=== PATIENT | female | born 1960 | race Caucasian/White ===

== ENCOUNTER 2017-08-06 15:07 | Inpatient (IN) | payer MEDICARE ==
[~2017-08-06 15:07] MED LIST: ISOVUE-370 76%-LOCM 1 ML ONE
[2017-08-06 15:58] LABS: #Lymphocytes 1.4 thou/uL (1.20-3.40); #Monocytes 1.3 thou/uL (0.11-0.59); #Neutrophils 6.9 thou/uL (1.40-6.50); %Basophils 0.1 % (0.0-1.0); %Eosinophils 0.1 % (0.0-10.0); %Lymphocytes 14.9 % (21.0-51.0); %Monocytes 13.1 % (0.0-10.0); Hematocrit 28.2 % (36.0-47.0); Red Blood Cell (RBC) Count 2.68 mill/uL (4.20-5.40); White Blood Cell (WBC) Count 9.6 thou/uL (4.8-10.8)
[2017-08-06 16:19] LABS: Troponin I Less than 0.010 ng/mL (< 0.028)
[2017-08-06 16:20] LABS: ALT (SGPT) 15 U/L (8-55); AST (SGOT) 26 U/L (5-34); Alkaline Phosphatase 180 U/L (40-150); Anion Gap 21 mmol/L (10-20); BUN (Urea Nitrogen) 22 mg/dL (9.8-20.1); Bilirubin, Total 0.7 mg/dL (0.2-1.2); CK (CPK) 163 U/L (29-168); Calc. Creatinine Clearance 0 mL/min (70-130); Calcium 7.3 mg/dL (7.8-10.44); Carbon Dioxide 22 mmol/L (22-29); Chloride 96 mmol/L (98-107); Estimated GFR-MDRD 40; Globulin 2.3 g/dL (2.4-3.5); Lipase Less than 4 U/L (8-78); Protein, Total 4.9 g/dL (6.0-8.3)
[2017-08-06] MEDS ORDERED: Norepinephrine 8 MG/0.9% NS 250 ML ONE (16:27)
[2017-08-06 16:46] LABS: PTT 32.9 SEC (22.9-36.1); Prothrombin Time 15.4 SEC (12.0-14.7)
[2017-08-06] MEDS ORDERED: Dexamethasone 4 mg/ml Vial ONE (16:58)
[2017-08-06 16:59] LABS: Lactic Acid - Sepsis 0.7 mmol/L (0.5-2.2)
--- NOTE | 2017-08-06 17:03 | RAD ---
PORTABLE AP CHEST X-RAY: 08/06/17 HISTORY: Syncope. COMPARISON: 07/29/17. FINDINGS: The right internal jugular vein central venous catheter has been removed. The cardiac silhouette is magnified by projection. Again noted is the mild nonspecific increased interstitial densities. A scl erotic density again overlies the mid thoracic spine which may be related to prior vertebroplasty ch anges. There has been no other interval change when compared to the prior exam. IMPRESSION: 1. Stable mild increase in interstitial densities predominantly in the right upper lobe. These findings may be related to chronic lung changes; although, pneumonitis is not entirely excluded. 2. Interval removal of the right internal jugular vein central venous catheter. POS: [facility]
[2017-08-06] MEDS ORDERED: Fentanyl 100 MCG/2 ML VIAL ONE ×2 (17:35→19:56)
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
[2017-08-06] MEDS ORDERED: Hydrocortisone Sod Succ/PF 100 mg/2 ml Vial IVP SCH (20:00)
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
[2017-08-06] MEDS ORDERED: Norepinephrine 8 MG/250 ML BAG IVPB PRN (20:35)
[2017-08-06] MEDS ORDERED: Ondansetron HCl/PF 4 MG/2 ML Vial IVP PRN ×2 (20:36→20:52)
[2017-08-06] MEDS ORDERED: Ondansetron ODT 4 MG TAB SL PRN (20:36)
[2017-08-06] MEDS ORDERED: Sodium Chloride 0.9% 1,000 ML IV SCH (20:36)
[2017-08-06] MEDS ORDERED: Ondansetron ODT 4 MG TAB PO PRN (20:52)
[2017-08-06] MEDS ORDERED: Dextrose 50% Abboject 50 ML SYRINGE SLOW IVP PRN (20:52)
[2017-08-06] MEDS ORDERED: Cyclobenzaprine 10 MG TAB PO PRN (20:52)
[2017-08-06] MEDS ORDERED: Dextrose 5% in Water 1,000 ML IV PRN (20:52)
[2017-08-06] MEDS ORDERED: Promethazine HCl 25 MG/ML VIAL IM PRN (20:52)
[2017-08-06] MEDS ORDERED: HYDROcodone/Acetaminophen 7.5/325 mg Tablet PO PRN (20:52)
[2017-08-06] MEDS ORDERED: Dexamethasone 4 mg/ml Vial SLOW IVP SCH (21:00)
[2017-08-06] MEDS ORDERED: Cefepime 2 GM in Sodium Chloride 0.9% 100 ML IVPB SCH (21:00)
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
[2017-08-06] MEDS: Sodium Chloride 0.9% 1,000 ML IV SCH (21:41)
[2017-08-06] MEDS: Famotidine/PF 20 mg/2ml Vial SLOW IVP SCH (22:01)
[2017-08-06] MEDS: Ibuprofen 800 MG TAB PO SCH (22:05)
[2017-08-06] MEDS: HYDROcodone/Acetaminophen 7.5/325 mg Tablet PO PRN (22:05)
[2017-08-07] MEDS: Hydrocortisone Sod Succ/PF 100 mg/2 ml Vial IVP SCH ×4 (00:14→17:57)
[2017-08-07] MEDS: HYDROcodone/Acetaminophen 7.5/325 mg Tablet PO PRN ×4 (04:51→19:21)
[2017-08-07] MEDS: Ibuprofen 800 MG TAB PO SCH ×3 (05:02→21:23)
[2017-08-07 05:05] LABS: #Lymphocytes 0.5 thou/uL (1.20-3.40); #Monocytes 0.2 thou/uL (0.11-0.59); #Neutrophils 6.7 thou/uL (1.40-6.50); %Eosinophils 0.1 % (0.0-10.0); %Lymphocytes 6.5 % (21.0-51.0); %Monocytes 2.4 % (0.0-10.0); Hematocrit 25.7 % (36.0-47.0); Mean Platelet Volume 7.1 fL (7.4-10.4); Red Blood Cell (RBC) Count 2.44 mill/uL (4.20-5.40); White Blood Cell (WBC) Count 7.4 thou/uL (4.8-10.8)
[2017-08-07 05:16] LABS: Anion Gap 15 mmol/L (10-20); BUN (Urea Nitrogen) 20 mg/dL (9.8-20.1); Calc. Creatinine Clearance 73 mL/min (70-130); Calcium 7.9 mg/dL (7.8-10.44); Carbon Dioxide 27 mmol/L (22-29); Chloride 100 mmol/L (98-107); Estimated GFR-MDRD 52
[2017-08-07] MEDS: Enoxaparin Sodium 40 MG/0.4 ML SYRINGE SC SCH (09:34)
[2017-08-07] MEDS: Famotidine/PF 20 mg/2ml Vial SLOW IVP SCH ×2 (09:34→21:22)
[2017-08-07] MEDS: Sodium Chloride 0.9% 1,000 ML IV SCH (09:34)
[2017-08-07] MEDS: clonazePAM 1 MG TAB PO SCH ×2 (14:04→21:23)
[2017-08-07] MEDS: Gabapentin 300 MG CAP PO SCH ×2 (14:04→21:22)
[2017-08-07 14:24] VITALS: BMI 31.0
--- NOTE | 2017-08-07 14:39 | PRG ---
DATE OF SERVICE: 08/07/2017 SUBJECTIVE: The patient was admitted yesterday with what appears to be adrenal insufficiency. She had no events overnight and after receiving her hydrocortisone bolus of 100 mg, the patient's blood pressure systolic was about 100 all night, the patient had no events. She feels that she has return ed to baseline and this morning was wearing her TLSO brace and was ready to start working with physi calixto therapy. PHYSICAL EXAMINATION: VITAL SIGNS: Temperature 98.2, heart rate 80, blood pressure 123/68, respirations 16, oxygen satura tion is 92% on room air. HEENT: Unremarkable. LUNGS: Clear to auscultation bilaterally with good inspiratory and expiratory effort. ABDOMEN: Soft, flat, nontender. EXTREMITIES: Neurovascularly intact x4. LABORATORY DATA: White blood cell count 7.4, hemoglobin 8.0, hematocrit 25.7, platelets 288. Sodiu m 138, potassium 3.5, chloride 100, CO2 27, BUN 20, creatinine 1.09, glucose 120. There are no radi ographs this morning. ASSESSMENT AND PLAN: Status post adrenal insufficiency, resolving with hydrocortisone. We will con tinue the patient on hydrocortisone, return her to her previous medications and get her working with physical and occupational therapy and if she remains stable today, we will move her to the surgical floor later this afternoon in hopes of transferring her back to rehab tomorrow. The evaluation exa mination, laboratory findings were done with Dr. Salgado this morning.
[2017-08-07] MEDS: Ferrous Sulfate 325 MG TAB PO SCH (17:57)
[2017-08-07] MEDS ORDERED: traZODone HCl 50 MG TAB PO SCH (21:00)
[2017-08-07] MEDS: Ascorbic Acid 500 mg Chewable Tablet PO SCH (21:22)
[2017-08-08] MEDS: Sodium Chloride 0.9% 1,000 ML IV SCH ×2 (00:06→10:56)
[2017-08-08] MEDS: Hydrocortisone Sod Succ/PF 100 mg/2 ml Vial IVP SCH ×4 (00:16→17:53)
[2017-08-08] MEDS: HYDROcodone/Acetaminophen 7.5/325 mg Tablet PO PRN ×5 (01:09→19:43)
[2017-08-08] MEDS: Ibuprofen 800 MG TAB PO SCH ×2 (05:45→14:59)
[2017-08-08 06:22] LABS: #Lymphocytes 0.9 thou/uL (1.20-3.40); #Monocytes 0.7 thou/uL (0.11-0.59); #Neutrophils 4.7 thou/uL (1.40-6.50); %Basophils 0.3 % (0.0-1.0); %Eosinophils 0.1 % (0.0-10.0); %Lymphocytes 14.7 % (21.0-51.0); %Monocytes 10.6 % (0.0-10.0); Hematocrit 27.5 % (36.0-47.0); Mean Platelet Volume 6.9 fL (7.4-10.4); Red Blood Cell (RBC) Count 2.62 mill/uL (4.20-5.40); White Blood Cell (WBC) Count 6.3 thou/uL (4.8-10.8)
[2017-08-08 06:39] LABS: Magnesium 1.7 mg/dL (1.6-2.6); Phosphorus 4.3 mg/dL (2.3-4.7)
[2017-08-08 06:41] LABS: Anion Gap 15 mmol/L (10-20); BUN (Urea Nitrogen) 19 mg/dL (9.8-20.1); Calc. Creatinine Clearance 63 mL/min (70-130); Calcium 8.4 mg/dL (7.8-10.44); Carbon Dioxide 26 mmol/L (22-29); Chloride 99 mmol/L (98-107); Estimated GFR-MDRD 44
[2017-08-08] MEDS ORDERED: Sodium Chloride 0.9% 500 ML IV SCH (07:45)
[2017-08-08] MEDS ORDERED: Magnesium Sulfate 4 GM in Sodium Chloride 0.9% 250 ML 250 ML IVPB SCH (08:00)
[2017-08-08] MEDS: Ferrous Sulfate 325 MG TAB PO SCH ×2 (08:37→17:52)
[2017-08-08] MEDS: clonazePAM 1 MG TAB PO SCH ×2 (08:38→15:00)
[2017-08-08] MEDS: Enoxaparin Sodium 40 MG/0.4 ML SYRINGE SC SCH (08:38)
[2017-08-08] MEDS: Ascorbic Acid 500 mg Chewable Tablet PO SCH (08:38)
[2017-08-08] MEDS: Famotidine/PF 20 mg/2ml Vial SLOW IVP SCH (08:39)
[2017-08-08] MEDS: Gabapentin 300 MG CAP PO SCH ×2 (08:39→15:00)
--- NOTE | 2017-08-08 09:00 | PRG ---
DATE OF SERVICE: 08/08/2017 SUBJECTIVE: Ms. Ross has no complaints. She notes that she feels more puffy secondary to all the IV fluids. PHYSICAL EXAMINATION: VITAL SIGNS: She is afebrile, blood pressure is 131/78, pulse 92. She voided 500 this morning. ABDOMEN: Soft, nontender. CHEST: Bilateral crackles and they are mild. No wheezing. LABORATORY DATA: Sodium 137, potassium 3.1, and creatinine 1.27. ASSESSMENT: Adrenal insufficiency, status post hypotensive episode. PLAN: Resolve. Continue steroids. Back to rehabilitation soon.
--- NOTE | 2017-08-08 12:00 | RAD ---
AP VIEW CHEST: HISTORY: A 56-year-old with respiratory distress. FINDINGS: AP view chest was obtained on 08/08/17. Comparison is made to previous exam from 08/06/17. AP view chest demonstrates the lungs to be well aerated. No evidence of active intrathoracic diseas e seen. No evidence of effusions, pneumonia, or pneumothorax seen. IMPRESSION: Unremarkable AP view chest. POS: [facility]
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
[2017-08-08 17:03] VITALS: BP 130/75; TEMP 98
== END 2017-08-08 20:17 | DRG 643 ==
LOC: ERS 15:07 → CCU 20:28 → SURG B 08-07 17:02
PROVIDERS: ADMIT Surgery; ATTEND Surgery
PROC: 02HV33Z Insertion of Infusion Device into Superior Vena Cava, Percutaneous Approach (ICD-10-PCS; principal; 2017-08-06)
DX: E27.40 Unspecified adrenocortical insufficiency (principal); R57.1 Hypovolemic shock; J44.9 Chronic obstructive pulmonary disease, unspecified; I10 Essential (primary) hypertension; F31.9 Bipolar disorder, unspecified; M54.9 Dorsalgia, unspecified; G89.29 Other chronic pain; F17.210 Nicotine dependence, cigarettes, uncomplicated; S32.011D Stable burst fracture of first lumbar vertebra, subsequent encounter for fracture with routine healing; V49.9XXD Car occupant (driver) (passenger) injured in unspecified traffic accident, subsequent encounter; M79.7 Fibromyalgia; Z86.73 Personal history of transient ischemic attack (TIA), and cerebral infarction without residual deficits; E78.5 Hyperlipidemia, unspecified
CPT/HCPCS: 36415; 71010; 71275; 80048; 82274; 82533; 82553; 83605; 83630; 83690; 83735; 83880; 84100; 84484; 85025; 85610; 85730; 87015; 87040; 87045; 87046; 87086; 87449; 87899; 93005; 94760; 94799; G8978-GP-CK; G8979-GP-CJ; J0692; J1100; J1650; J1720; J1956; J3010; J3370; J3475; J7050; S0028

== ENCOUNTER 2017-08-23 15:22 | Inpatient (IN) | payer MEDICARE ==
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
[2017-08-23 17:51] LABS: PTT 31.9 SEC (22.9-36.1); Prothrombin Time 12.7 SEC (12.0-14.7)
[2017-08-23 18:03] LABS: Lactic Acid - Sepsis 1.1 mmol/L (0.5-2.2)
[2017-08-23 18:11] LABS: Hematocrit 27.9 % (36.0-47.0); Mean Platelet Volume 7.8 fL (7.4-10.4); Red Blood Cell (RBC) Count 2.61 mill/uL (4.20-5.40); White Blood Cell (WBC) Count 5.4 thou/uL (4.8-10.8)
[2017-08-23 18:13] LABS: Troponin I 0.038 ng/mL (< 0.028)
[2017-08-23 18:17] LABS: Anisocytosis SLIGHT = 6-15 cells (100X) (0-5/hpf); Band 23 % (5-11); Macrocytosis SLIGHT = 6-15 cells (100X) (0-5/hpf); Neutrophil 44 % (42-75); Ovalocytes SLIGHT = 2-5 cells (100X) (0-1/hpf); Polychromasia MODERATE = 3-4 cells (100X) (0-2/hpf); Reactive Lymphocytes 2 % (0-10); Target Cells SLIGHT = 2-5 cells (100X) (0-1/hpf)
[2017-08-23 18:29] LABS: ALT (SGPT) 21 U/L (8-55); AST (SGOT) 24 U/L (5-34); Alkaline Phosphatase 98 U/L (40-150); Anion Gap 18 mmol/L (10-20); BUN (Urea Nitrogen) 15 mg/dL (9.8-20.1); Bilirubin, Total 0.5 mg/dL (0.2-1.2); CK (CPK) 64 U/L (29-168); Calc. Creatinine Clearance 0 mL/min (70-130); Calcium 7.3 mg/dL (7.8-10.44); Carbon Dioxide 29 mmol/L (22-29); Chloride 96 mmol/L (98-107); Estimated GFR-MDRD 71; Globulin 3.3 g/dL (2.4-3.5)
[2017-08-23] MEDS ORDERED: Furosemide 20 MG/2 ML VIAL ONE (19:38)
[2017-08-23] MEDS ORDERED: Potassium Chloride 20 MEQ TAB ONE (19:39)
[2017-08-23] MEDS ORDERED: Dextrose 50% Abboject 50 ML SYRINGE SLOW IVP PRN (20:08)
[2017-08-23] MEDS ORDERED: HYDROcodone/Acetaminophen 10/325 mg Tablet PO PRN (20:08)
[2017-08-23] MEDS ORDERED: Ondansetron HCl/PF 4 MG/2 ML Vial IVP PRN (20:08)
[2017-08-23] MEDS ORDERED: Promethazine HCl 25 MG/ML VIAL IM PRN (20:08)
[2017-08-23] MEDS ORDERED: Dextrose 5% in Water 1,000 ML IV PRN (20:08)
[2017-08-23] MEDS ORDERED: Furosemide 20 MG/2 ML VIAL SLOW IVP SCH (21:00)
[2017-08-23 21:18] LABS: Troponin I 0.052 ng/mL (< 0.028)
[2017-08-23] MEDS ORDERED: Acetaminophen/Codeine 30-300mg Tablet ONE (21:45)
[2017-08-23] MEDS: Famotidine/PF 20 mg/2ml Vial SLOW IVP SCH (23:27)
[2017-08-23] MEDS: HYDROcodone/Acetaminophen 10/325 mg Tablet PO PRN (23:28)
[2017-08-23] MEDS: Enoxaparin Sodium 30 MG/0.3 ML SYRINGE SC SCH (23:28)
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
[2017-08-23 23:49] LABS: Bilirubin Negative (Negative); Blood, Urine Negative (Negative); Glucose, Urine (Dipstick) Negative (Negative); Ketone, Urine Negative (Negative); Nitrite Negative (Negative); Protein, Urine (Dipstick) Negative (Neg-Trace); Urobilinogen 0.2 mg/dL (0.2-1.0)
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
[2017-08-24 02:51] LABS: Band 15 % (5-11); Hematocrit 27.1 % (36.0-47.0); Mean Platelet Volume 6.8 fL (7.4-10.4); Neutrophil 33 % (42-75); Red Blood Cell (RBC) Count 2.51 mill/uL (4.20-5.40); White Blood Cell (WBC) Count 6.7 thou/uL (4.8-10.8)
[2017-08-24 02:53] LABS: Troponin I 0.044 ng/mL (< 0.028)
[2017-08-24 03:02] LABS: Anion Gap 14 mmol/L (10-20); BUN (Urea Nitrogen) 13 mg/dL (9.8-20.1); Calc. Creatinine Clearance 112 mL/min (70-130); Calcium 7.3 mg/dL (7.8-10.44); Carbon Dioxide 35 mmol/L (22-29); Chloride 96 mmol/L (98-107); Estimated GFR-MDRD 74
[2017-08-24] MEDS ORDERED: Potassium Chloride 20 MEQ TAB PO SCH (03:45)
[2017-08-24] MEDS: HYDROcodone/Acetaminophen 10/325 mg Tablet PO PRN ×2 (04:29→09:34)
[2017-08-24 08:05] LABS: Magnesium 1.4 mg/dL (1.6-2.6)
[2017-08-24 08:25] LABS: Troponin I 0.044 ng/mL (< 0.028)
--- NOTE | 2017-08-24 08:44 | RAD ---
RADIOGRAPH CHEST 1 VIEW: Date: 08/24/17 Time: 0458 HOURS HISTORY: 56-year-old female with congestive heart failure. COMPARISON: 08/23/17 at 1653 hours. FINDINGS: No cardiomegaly. Interstitial markings are prominent at the right lower lung zone, apparently greate r than on the prior study. It is uncertain whether this is real or technical. No consolidation. No f rank pulmonary alveolar edema. No mediastinal widening, pneumothorax, or effacement of lateral costo phrenic angles. IMPRESSION: Subtle interval change of increased density at the right medial base. Follow-up recommended. YEIMI [] POS: [facility]
[2017-08-24] MEDS: Famotidine/PF 20 mg/2ml Vial SLOW IVP SCH ×2 (08:58→20:58)
[2017-08-24] MEDS: Enoxaparin Sodium 30 MG/0.3 ML SYRINGE SC SCH ×2 (08:59→20:58)
[2017-08-24] MEDS: AcetaZOLAMIDE 250 MG TAB PO SCH ×2 (09:33→21:54)
[2017-08-24] MEDS: clonazePAM 0.5 MG TAB PO SCH ×2 (12:47→20:58)
[2017-08-24] MEDS: HYDROcodone/Acetaminophen 7.5/325 mg Tablet PO PRN ×2 (13:29→18:10)
--- NOTE | 2017-08-24 14:09 | CT ---
CT ANGIOGRAM OF THE ABDOMINAL AORTA CT ANGIOGRAM OF THE PELVIS: Date: 08/24/17 COMPARISON: 08/06/17. HISTORY: Abdominal pain. Diarrhea. Evaluate for ischemic bowel. TECHNIQUE: CT angiogram of the abdominal aorta and pelvis are performed in the axial plane. Three-dimensional r eformatted images are submitted for interpretation. FINDINGS: Chronic changes in the lung bases. Heart size is within normal limits. No significant pericardial fl uid. Liver, spleen, pancreas, and adrenal glands have appropriate enhancement. Gallbladder is surgically absent. A fold in the gallbladder is noted. No evidence of cholecystitis. There is scarring in the left renal cortex. Bilaterally, no obstructive uropathy. No mesenteric mass, lymphadenopathy, free air, or significant free fluid. Trace amount of fluid in t he right paracolic gutter is noted. No gastrohepatic, retrocrural, or periportal lymphadenopathy. There are nonspecific periaortic and a ortocaval lymph nodes, unchanged from the prior examination. Symmetric attenuation of the psoas musc les. There is evidence of an aortobifemoral bypass. The [place] iliac arteries are occluded. Stents are re demonstrated and unchanged. There is no evidence of aneurysm or dissection. There is atherosclerotic disease with mild stenosis of the suprarenal aorta. There is atherosclerotic disease with short seg ment moderate stenosis. The celiac artery origin, superior mesenteric artery origin, bilateral renal artery ostia, and inferior mesenteric artery origin have appropriate enhancement and luminal diamet er. There is no evidence of significant stenosis. Limited evaluation of the alimentary canal due to lack of oral contrast. No evidence of small bowel obstruction. Ileocecal junction is normal. Normal caliber appendix. There are appendicoliths in the mid to distal portion of the appendix without evidence of inflammatory change. There is a moderate a mount of fecal material throughout the colon. There is mucosal thickening and pericolonic fat strand ing starting in the mid transverse colon and involving the mid to distal transverses colon, splenic flexure, descending colon, and entire sigmoid colon. The lung segment distribution favors an infecti ous or possibly inflammatory process. The distribution is less favorable for an ischemic process giv en that the segment of colon involved would be supplied by both the JOVITA and SMA. There is pericoloni c fat stranding. No evidence of bowel wall pneumatosis. No evidence of abscess or extraluminal air. When compared to the previous examination, the distribution of inflammatory change is similar. Clini calixto correlation is essential. Colonoscopy should be performed when the acute bout of inflammatory ch elizabet resolves. The urinary bladder is decompressed due to Fry catheterization. No pelvic mass, lymphadenopathy, f ree air, or free fluid. Indeterminate compression fracture at the L1 level. Previous vertebroplasty change in the mid thorac ic spine is noted. 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 There are two arteries supplying the left and right kidney. IMPRESSION: 1. Persistent inflammatory change involving the transverse colon and left hemicolon as detailed abo ve. Distribution is favorable for an infectious or inflammatory process. Ischemic process is less fa vored given that the degree of involvement would involve both SMA and CATHY branches. 2. Stable atherosclerosis of the aorta. 3. Stable occlusion of the left and right iliac arteries. Bypass changes are noted. POS: [facility]
--- NOTE | 2017-08-24 14:17 | PRG ---
DATE OF SERVICE: 08/24/2017 SUBJECTIVE: Ms. Ross is awake and alert today. She reports good pain control. She denies any dy spnea or syncope. Urinary output has been adequate. She denies any abdominal pain and has reported 2 bowel movements since admission. OBJECTIVE: VITAL SIGNS: Today includes blood pressure 158/80, pulse is 69, respiratory rate 16, temperature is 98.2 degrees Fahrenheit, oxygen saturation is 100% on 2 liters by nasal cannula oxygen. HEENT: Reveals normocephalic and atraumatic. The pupils are equal, round, and reactive to light an d accommodation. Extraocular muscles are intact bilaterally. The patient has no jugular venous dis tention noted. HEART: Reveals regular rate and rhythm with a 2/6 systolic murmur auscultated in the left sternal b order. CHEST: Lungs are clear to auscultation bilaterally. CARDIOVASCULAR: Rhythm is regular and unlabored. ABDOMEN: Soft and moderately distended and nontender to palpation. Liver and spleen are nonpalpabl e below costal margins. EXTREMITIES: Extremities reveals 2+ radial and pedal pulses bilaterally. The patient has no ankle edema present. NEUROLOGIC: Reveals no focal deficits present. LABORATORY DATA: Today includes a CBC with 6700 white blood cells, hemoglobin 8.4, hematocrit is 27 .1, platelet count is 303,000. Metabolic profile: Sodium 142, potassium is 2.8, chloride is 96, bi carbonate 35, BUN 13, creatinine 0.80, glucose is 70, phosphorus is 3.0. Magnesium is 1.4. BNP is elevated at 1457.6. 2D echocardiogram obtained today reveals normal ejection fraction of 55-60%. There is moderate to s evere mitral regurgitation that was reported. This is a drastic change in contrast to the echo obta inemesha in 2015 where a mild mitral regurgitation was noted. Also noted in today's echocardiogram is i mpaired relaxation with diastolic dysfunction. IMPRESSION: 1. Acute congestive heart failure exacerbation with diastolic dysfunction. 2. Acute hypokalemia. 3. Acute hypomagnesemia. 4. Acute contraction metabolic alkalosis. PLAN: 1. We will continue with gentle diuresis. 2. We will ask Cardiology to reevaluate the patient for this worsening diastolic cardiac dysfunctio n. 3. We will correct abnormal electrolytes. The above findings and plan has been discussed with the patient who indicates understanding of infor mation given.
[2017-08-24] MEDS ORDERED: Potassium Chloride 40 MEQ in Sodium Chloride 0.9% 500 ML IVPB SCH ×2 (14:45→15:00)
[2017-08-24] MEDS: Gabapentin 300 MG CAP PO SCH ×2 (15:06→20:57)
[2017-08-24] MEDS ORDERED: ISOVUE-370 76%-LOCM 1 ML ONE (15:59)
[2017-08-24] MEDS: traMADol HCl 50 MG TAB PO SCH ×2 (17:15→20:58)
[2017-08-24] MEDS: Aspirin 81 mg Enteric Coated Tablet PO SCH (18:10)
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
[2017-08-24] MEDS: Atorvastatin Calcium 40 MG TAB PO SCH (20:58)
[2017-08-24] MEDS ORDERED: Spironolactone 100 MG TAB PO SCH (21:00)
[2017-08-25 05:09] LABS: Anion Gap 11 mmol/L (10-20); BUN (Urea Nitrogen) 12 mg/dL (9.8-20.1); Calc. Creatinine Clearance 100 mL/min (70-130); Calcium 7.4 mg/dL (7.8-10.44); Carbon Dioxide 31 mmol/L (22-29); Chloride 101 mmol/L (98-107); Estimated GFR-MDRD 66; Magnesium 2.6 mg/dL (1.6-2.6); Phosphorus 4.1 mg/dL (2.3-4.7)
[2017-08-25] MEDS ORDERED: Potassium Chloride 20 MEQ TAB PO SCH (07:45)
[2017-08-25] MEDS: traMADol HCl 50 MG TAB PO SCH ×4 (07:56→22:23)
[2017-08-25] MEDS: Gabapentin 300 MG CAP PO SCH ×3 (07:56→22:27)
[2017-08-25] MEDS: AcetaZOLAMIDE 250 MG TAB PO SCH (07:56)
[2017-08-25] MEDS: Furosemide 40 MG/4 ML VIAL SLOW IVP SCH ×3 (07:57→13:17)
[2017-08-25] MEDS: Famotidine/PF 20 mg/2ml Vial SLOW IVP SCH ×2 (07:57→22:24)
[2017-08-25] MEDS: Aspirin 81 mg Enteric Coated Tablet PO SCH (07:57)
[2017-08-25] MEDS: clonazePAM 0.5 MG TAB PO SCH ×3 (07:57→22:23)
[2017-08-25] MEDS: Enoxaparin Sodium 30 MG/0.3 ML SYRINGE SC SCH ×2 (07:58→22:25)
[2017-08-25] MEDS: HYDROcodone/Acetaminophen 7.5/325 mg Tablet PO PRN ×3 (08:04→22:24)
[2017-08-25] MEDS ORDERED: FLU VACC QS2017-18 36 mo. & older 0.5 ML SYRINGE IM ONE (09:00)
--- NOTE | 2017-08-25 16:29 | PRG ---
DATE OF SERVICE: 08/25/2017 SUBJECTIVE: Ms. Ross is awake and alert. She is admitted with acute CHF exacerbation. Currently , she reports no dyspnea or syncope. She has had good urinary output with forced diuresis since yes terday. She has remained hemodynamically stable and afebrile through this hospitalization. OBJECTIVE: CURRENT VITAL SIGNS: Includes blood pressure 112/58, pulse is 98, respiratory rate is 20, maximum t emperature in the last 24 hours is 98.7 degrees Fahrenheit, oxygen saturation is currently 96% on 2 liters by nasal cannula oxygen. HEENT: Examination reveals normocephalic and atraumatic. Pupils are equal, round, and reactive to light and accommodation. The patient has no jugular venous distention noted. HEART: Reveals regular rate and rhythm, no murmurs or gallops auscultated. LUNGS: Clear to auscultation bilaterally. Breathing is strict and unlabored. ABDOMEN: Soft, nontender and nondistended. Liver and spleen are nonpalpable below costal margins. NEUROLOGIC: Examination reveals no focal deficits present. LABORATORY DATA: Pertinent laboratory findings today includes metabolic profile: Sodium 139, potas sium is 3.6, chloride is 101, bicarbonate is 31, BUN 12, creatinine 0.89, glucose is 62, magnesium i s 2.6, and phosphorus is 4.1. IMPRESSION: 1. Resolving acute congestive heart failure exacerbation with diastolic function. 2. Acute hypokalemia, resolving. PLAN: 1. Continue with forced diuresis. 2. Correct abnormal electrolytes. 3. The patient has remained hemodynamically stable and will be transferred to a general surgical sd onh where we will continue with serial physical examination as well as physical and occupational the rapy.
[2017-08-25] MEDS: Atorvastatin Calcium 40 MG TAB PO SCH (22:23)
[2017-08-26] MEDS: Famotidine/PF 20 mg/2ml Vial SLOW IVP SCH ×3 (02:19→21:08)
[2017-08-26] MEDS: HYDROcodone/Acetaminophen 7.5/325 mg Tablet PO PRN ×5 (02:29→23:45)
[2017-08-26 06:08] LABS: Anion Gap 9 mmol/L (10-20); BUN (Urea Nitrogen) 13 mg/dL (9.8-20.1); Calc. Creatinine Clearance 95 mL/min (70-130); Calcium 7.5 mg/dL (7.8-10.44); Carbon Dioxide 29 mmol/L (22-29); Chloride 100 mmol/L (98-107); Estimated GFR-MDRD 63; Magnesium 1.6 mg/dL (1.6-2.6); Phosphorus 4.8 mg/dL (2.3-4.7)
[2017-08-26] MEDS: Furosemide 40 MG/4 ML VIAL SLOW IVP SCH ×2 (06:26→13:01)
[2017-08-26] MEDS ORDERED: Potassium Chloride 20 MEQ TAB PO SCH (07:30)
[2017-08-26] MEDS ORDERED: Potassium Chloride 40 MEQ, Magnesium Sulfate 4 GM in Sodium Chloride 0.9% 250 ML 250 ML IVPB SCH (08:15)
[2017-08-26] MEDS: Enoxaparin Sodium 30 MG/0.3 ML SYRINGE SC SCH ×2 (08:44→21:08)
[2017-08-26] MEDS: Aspirin 81 mg Enteric Coated Tablet PO SCH (08:44)
[2017-08-26] MEDS: Metolazone 5 MG TAB PO SCH (08:44)
[2017-08-26] MEDS: clonazePAM 0.5 MG TAB PO SCH ×3 (08:44→21:08)
[2017-08-26] MEDS: traMADol HCl 50 MG TAB PO SCH ×4 (08:45→21:07)
[2017-08-26] MEDS: Gabapentin 300 MG CAP PO SCH ×3 (08:45→21:07)
[2017-08-26] MEDS: Folic Acid 1 MG TAB PO SCH (08:45)
--- NOTE | 2017-08-26 12:08 | PRG-2 ---
DATE OF SERVICE: 08/26/2017 SUBJECTIVE: Ms. Ross is awake and alert. Reports she is doing much better today, feeling much be tter, having good pain control. She has had good urinary output on diuresis. Reports her swelling has gone down in her legs. Reports moving around better. No other concerns or complaints at this t [place]. PHYSICAL EXAMINATION: VITAL SIGNS: Temperature is 98.5, pulse 79, respirations 16, O2 sats 98% on room air, blood pressur e is 108/69. GENERAL: She is alert and oriented x3, no acute distress. HEENT: Atraumatic, normocephalic. CARDIOVASCULAR: Heart regular rate and rhythm. No murmurs or gallops. CHEST: Lungs clear to auscultation bilaterally. Breathing is unlabored. ABDOMEN: Soft, nontender, nondistended. She has the brace in place. NEUROLOGIC: No focal neuro deficit at this time. LABORATORY DATA: Chemistry: Sodium is 135, potassium 3.4, chloride 100, CO2 is 29, BUN 13, creatin ine 0.92, calcium 7.5, phosphorus is 4.8 and magnesium is 1.6. New images to be reviewed at this time. ASSESSMENT: 1. Resolving acute congestive heart failure exacerbation with diastolic function. 2. Acute hypokalemia which down trended a little bit today. PLAN: Dr. Mandujano has been consulted with Cardiology to help follow. She has been placed on Lasix diuresis. We will continue that for today. We will replace potassium, 40 IV. We will recheck lab s in the morning. Due to the other day, her hemoglobin being a little low and MCV high, it was foun d in the past that she has had a folic acid deficiency, have restarted her on folic acid and thiamin e and we will continue to monitor labs tomorrow. We will continue patient to work with PT, OT and fermín rowland with therapies. The patient was seen and plan of care was discussed with Dr. Salgado.
[2017-08-26] MEDS: Loperamide HCl 2 MG CAP PO PRN (14:51)
[2017-08-26] MEDS: Atorvastatin Calcium 40 MG TAB PO SCH (21:08)
[2017-08-27 05:39] LABS: Anion Gap 13 mmol/L (10-20); BUN (Urea Nitrogen) 17 mg/dL (9.8-20.1); Calc. Creatinine Clearance 73 mL/min (70-130); Calcium 8.3 mg/dL (7.8-10.44); Carbon Dioxide 28 mmol/L (22-29); Chloride 96 mmol/L (98-107); Estimated GFR-MDRD 47; Magnesium 2.1 mg/dL (1.6-2.6); Phosphorus 5.4 mg/dL (2.3-4.7)
[2017-08-27] MEDS: Furosemide 40 MG/4 ML VIAL SLOW IVP SCH ×2 (05:42→15:07)
[2017-08-27] MEDS: HYDROcodone/Acetaminophen 7.5/325 mg Tablet PO PRN ×2 (05:43→15:13)
[2017-08-27] MEDS: Famotidine/PF 20 mg/2ml Vial SLOW IVP SCH ×2 (08:30→20:06)
[2017-08-27] MEDS: clonazePAM 0.5 MG TAB PO SCH ×3 (08:30→20:08)
[2017-08-27] MEDS: Aspirin 81 mg Enteric Coated Tablet PO SCH (08:31)
[2017-08-27] MEDS: Gabapentin 300 MG CAP PO SCH ×3 (08:31→20:08)
[2017-08-27] MEDS: traMADol HCl 50 MG TAB PO SCH ×5 (08:31→23:57)
[2017-08-27] MEDS: Metolazone 5 MG TAB PO SCH (08:32)
[2017-08-27] MEDS: Enoxaparin Sodium 30 MG/0.3 ML SYRINGE SC SCH ×2 (08:32→20:08)
[2017-08-27] MEDS: Folic Acid 1 MG TAB PO SCH (08:32)
[2017-08-27] MEDS: Loperamide HCl 2 MG CAP PO PRN ×2 (11:29→23:32)
[2017-08-27 12:04] VITALS: BMI 33.9
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
[2017-08-27] MEDS ORDERED: Furosemide 40 MG TAB PO SCH (19:45)
[2017-08-27] MEDS: Atorvastatin Calcium 40 MG TAB PO SCH (20:08)
[2017-08-27] MEDS: Ibuprofen 800 MG TAB PO PRN (23:15)
[2017-08-28] MEDS: Ondansetron ODT 4 MG TAB PO PRN ×2 (03:40→20:10)
[2017-08-28] MEDS: Loperamide HCl 2 MG CAP PO PRN ×3 (03:40→21:12)
[2017-08-28 05:36] LABS: #Lymphocytes 2.7 thou/uL (1.20-3.40); #Monocytes 1.1 thou/uL (0.11-0.59); #Neutrophils 3.7 thou/uL (1.40-6.50); %Basophils 0.4 % (0.0-1.0); %Eosinophils 0.1 % (0.0-10.0); %Lymphocytes 35.7 % (21.0-51.0); %Monocytes 14.7 % (0.0-10.0); Hematocrit 25.8 % (36.0-47.0); Mean Platelet Volume 7.2 fL (7.4-10.4); Red Blood Cell (RBC) Count 2.43 mill/uL (4.20-5.40); White Blood Cell (WBC) Count 7.4 thou/uL (4.8-10.8)
[2017-08-28] MEDS ORDERED: Furosemide 40 MG/4 ML VIAL SLOW IVP SCH (06:00)
[2017-08-28] MEDS ORDERED: Furosemide 40 MG TAB PO SCH (06:00)
[2017-08-28 06:01] LABS: Anion Gap 17 mmol/L (10-20); BUN (Urea Nitrogen) 24 mg/dL (9.8-20.1); Calc. Creatinine Clearance 46 mL/min (70-130); Calcium 8.5 mg/dL (7.8-10.44); Carbon Dioxide 26 mmol/L (22-29); Chloride 93 mmol/L (98-107); Estimated GFR-MDRD 27; Magnesium 1.9 mg/dL (1.6-2.6); Phosphorus 5.6 mg/dL (2.3-4.7)
[2017-08-28] MEDS: Ibuprofen 800 MG TAB PO PRN ×2 (07:10→15:06)
[2017-08-28] MEDS: HYDROcodone/Acetaminophen 7.5/325 mg Tablet PO PRN ×2 (08:10→18:09)
[2017-08-28] MEDS: Aspirin 81 mg Enteric Coated Tablet PO SCH (08:10)
[2017-08-28] MEDS: Enoxaparin Sodium 30 MG/0.3 ML SYRINGE SC SCH ×2 (08:11→21:08)
[2017-08-28] MEDS: Folic Acid 1 MG TAB PO SCH (08:11)
[2017-08-28] MEDS: clonazePAM 0.5 MG TAB PO SCH ×3 (08:30→21:06)
[2017-08-28] MEDS: Famotidine/PF 20 mg/2ml Vial SLOW IVP SCH ×2 (08:30→21:07)
[2017-08-28] MEDS ORDERED: traMADol HCl 50 MG TAB PO PRN (08:38)
[2017-08-28] MEDS: traMADol HCl 50 MG TAB PO SCH ×4 (09:27→21:09)
[2017-08-28] MEDS ORDERED: MAGNESIUM SULFATE IVPB SCH (11:15)
[2017-08-28] MEDS ORDERED: SODIUM CHLORIDE IVPB SCH (11:15)
[2017-08-28] MEDS ORDERED: ADMIXTURE FEE IVPB SCH (11:15)
[2017-08-28] MEDS ORDERED: HYDROcodone/Acetaminophen 10/325 mg Tablet PO PRN (11:43)
[2017-08-28] MEDS ORDERED: Magnesium 2 GM/NS 0.9% 100 ML 2 GM in Premix Bag 1 BAG IVPB SCH (11:45)
[2017-08-28] MEDS: Gabapentin 300 MG CAP PO SCH ×3 (11:56→21:07)
[2017-08-28] MEDS: Potassium Chloride 20 MEQ/100 ML PREMIX BAG IVPB SCH ×2 (13:50→13:58)
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
[2017-08-28] MEDS: Atorvastatin Calcium 40 MG TAB PO SCH (21:06)
[2017-08-29] MEDS: Ibuprofen 800 MG TAB PO PRN (04:17)
[2017-08-29] MEDS: Loperamide HCl 2 MG CAP PO PRN (05:04)
[2017-08-29] MEDS: Ondansetron ODT 4 MG TAB PO PRN ×2 (06:15→14:47)
[2017-08-29 06:25] LABS: #Basophils 0.1 thou/uL (0.0-0.2); #Monocytes 1.2 thou/uL (0.11-0.59); #Neutrophils 5.6 thou/uL (1.40-6.50); %Basophils 0.8 % (0.0-1.0); %Eosinophils 0.1 % (0.0-10.0); %Lymphocytes 22.5 % (21.0-51.0); %Monocytes 13.7 % (0.0-10.0); Mean Platelet Volume 7.6 fL (7.4-10.4); Red Blood Cell (RBC) Count 2.56 mill/uL (4.20-5.40); White Blood Cell (WBC) Count 8.9 thou/uL (4.8-10.8)
[2017-08-29] MEDS: traMADol HCl 50 MG TAB PO SCH ×4 (09:12→22:17)
[2017-08-29] MEDS: clonazePAM 0.5 MG TAB PO SCH ×3 (09:13→22:16)
[2017-08-29] MEDS: Gabapentin 300 MG CAP PO SCH ×3 (09:18→22:17)
[2017-08-29] MEDS: Enoxaparin Sodium 30 MG/0.3 ML SYRINGE SC SCH ×2 (09:18→22:20)
[2017-08-29] MEDS: Folic Acid 1 MG TAB PO SCH (09:18)
[2017-08-29] MEDS: Aspirin 81 mg Enteric Coated Tablet PO SCH (09:18)
[2017-08-29] MEDS: Famotidine/PF 20 mg/2ml Vial SLOW IVP SCH ×2 (09:19→22:18)
[2017-08-29 09:26] LABS: Anion Gap 17 mmol/L (10-20); BUN (Urea Nitrogen) 27 mg/dL (9.8-20.1); Calc. Creatinine Clearance 41 mL/min (70-130); Calcium 8.8 mg/dL (7.8-10.44); Carbon Dioxide 27 mmol/L (22-29); Chloride 94 mmol/L (98-107); Estimated GFR-MDRD 24; Magnesium 2.3 mg/dL (1.6-2.6); Phosphorus 5.8 mg/dL (2.3-4.7)
[2017-08-29] MEDS: Diphenoxylate HCl/Atropine Tablet PO PRN (14:47)
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
[2017-08-29] MEDS: Atorvastatin Calcium 40 MG TAB PO SCH (22:17)
[2017-08-30 07:48] LABS: Chloride 100 mmol/L (98-107); Magnesium 2.3 mg/dL (1.6-2.6)
[2017-08-30 07:49] LABS: Calcium 8.8 mg/dL (7.8-10.44)
[2017-08-30 07:51] LABS: Anion Gap 14 mmol/L (10-20); Carbon Dioxide 28 mmol/L (22-29)
[2017-08-30 07:53] LABS: Calc. Creatinine Clearance 47 mL/min (70-130); Estimated GFR-MDRD 28
[2017-08-30 07:54] LABS: BUN (Urea Nitrogen) 23 mg/dL (9.8-20.1)
[2017-08-30] MEDS: Aspirin 81 mg Enteric Coated Tablet PO SCH (09:08)
[2017-08-30] MEDS: Gabapentin 300 MG CAP PO SCH ×3 (09:08→20:53)
[2017-08-30] MEDS: Folic Acid 1 MG TAB PO SCH (09:08)
[2017-08-30] MEDS: clonazePAM 0.5 MG TAB PO SCH ×3 (09:08→20:53)
[2017-08-30] MEDS: traMADol HCl 50 MG TAB PO SCH ×4 (09:09→20:53)
[2017-08-30] MEDS: Enoxaparin Sodium 30 MG/0.3 ML SYRINGE SC SCH ×2 (09:09→20:58)
[2017-08-30] MEDS ORDERED: Sodium Chloride 0.9% 500 ML IV SCH (11:15)
[2017-08-30] MEDS: Sodium Chloride 0.9% 1,000 ML IV SCH ×2 (11:47→17:58)
[2017-08-30] MEDS: Ibuprofen 800 MG TAB PO PRN (11:47)
[2017-08-30] MEDS: Atorvastatin Calcium 40 MG TAB PO SCH (20:53)
[2017-08-31] MEDS: Sodium Chloride 0.9% 1,000 ML IV SCH (06:04)
[2017-08-31 06:52] LABS: Anion Gap 10 mmol/L (10-20); BUN (Urea Nitrogen) 16 mg/dL (9.8-20.1); Calc. Creatinine Clearance 68 mL/min (70-130); Calcium 8.4 mg/dL (7.8-10.44); Carbon Dioxide 28 mmol/L (22-29); Chloride 102 mmol/L (98-107); Estimated GFR-MDRD 43; Magnesium 1.6 mg/dL (1.6-2.6); Phosphorus 3.7 mg/dL (2.3-4.7)
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
[2017-08-31] MEDS ORDERED: Magnesium Sulfate 3 GM, Potassium Chloride 40 MEQ in Sodium Chloride 0.9% 250 ML 250 ML IVPB SCH (09:00)
[2017-08-31] MEDS: Gabapentin 300 MG CAP PO SCH ×2 (09:37→15:50)
[2017-08-31] MEDS: Aspirin 81 mg Enteric Coated Tablet PO SCH (09:41)
[2017-08-31] MEDS: Folic Acid 1 MG TAB PO SCH (09:41)
[2017-08-31] MEDS: clonazePAM 0.5 MG TAB PO SCH ×2 (09:41→15:51)
[2017-08-31] MEDS: traMADol HCl 50 MG TAB PO SCH ×2 (09:42→12:31)
[2017-08-31] MEDS: Enoxaparin Sodium 30 MG/0.3 ML SYRINGE SC SCH ×2 (09:42→11:42)
[2017-08-31] MEDS: Diphenoxylate HCl/Atropine Tablet PO PRN (09:45)
[2017-08-31] MEDS: HYDROcodone/Acetaminophen 7.5/325 mg Tablet PO PRN ×2 (09:55→14:36)
[2017-08-31] MEDS ORDERED: Furosemide 40 MG TAB PO SCH (10:45)
[2017-08-31 12:43] VITALS: BP 96/64; TEMP 98.1
[2017-09-01] MEDS ORDERED: Furosemide 40 MG TAB PO SCH (07:30)
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
== END 2017-08-31 16:30 | disposition home health service (06) | DRG 292 ==
LOC: ERS 15:22 → IMCU/EMU 19:15 → SJJU 08-25 10:54
PROVIDERS: ADMIT Specialist; ATTEND Specialist
DX: I11.0 Hypertensive heart disease with heart failure (principal); E87.3 Alkalosis; I95.9 Hypotension, unspecified; I73.9 Peripheral vascular disease, unspecified; E83.42 Hypomagnesemia; E87.6 Hypokalemia; I50.33 Acute on chronic diastolic (congestive) heart failure; J44.9 Chronic obstructive pulmonary disease, unspecified; E78.5 Hyperlipidemia, unspecified; D64.9 Anemia, unspecified; F31.9 Bipolar disorder, unspecified; R33.9 Retention of urine, unspecified; Z87.891 Personal history of nicotine dependence; I34.0 Nonrheumatic mitral (valve) insufficiency
CPT/HCPCS: 36415; 71010; 74174; 80048; 80053; 81003; 82553; 83605; 83735; 83880; 84100; 84484; 85025; 85610; 85730; 87086; 87324; 87449; 93005; 93306; 93970; 96374; 96375; 96376; G8978-GP-CJ; G8979-GP-CI; G8987-GO-CJ; G8988-GO-CH; J1650; J1940; J2270; J2550; J3475; J3480; J7050; P9045; Q0162; S0028

== ENCOUNTER 2017-09-14 21:26 | Inpatient (IN) | payer MEDICARE ==
[2017-09-14] MEDS ORDERED: cefTRIAXone\\ROCEPHIN 500 MG VIAL ONE (22:20)
[2017-09-14 22:29] LABS: #Basophils 0.1 thou/uL (0.0-0.2); #Lymphocytes 2.8 thou/uL (1.20-3.40); #Monocytes 1.8 thou/uL (0.11-0.59); #Neutrophils 11.4 thou/uL (1.40-6.50); %Basophils 0.4 % (0.0-1.0); %Lymphocytes 17.3 % (21.0-51.0); %Monocytes 11.2 % (0.0-10.0); Hematocrit 33.7 % (36.0-47.0); Mean Platelet Volume 6.5 fL (7.4-10.4); Red Blood Cell (RBC) Count 3.25 mill/uL (4.20-5.40)
[2017-09-14 22:39] LABS: Bilirubin Negative (Negative); Blood, Urine Trace (Negative); Glucose, Urine (Dipstick) Negative (Negative); Ketone, Urine Negative (Negative); Nitrite Positive (Negative); Protein, Urine (Dipstick) Negative (Neg-Trace); Urobilinogen 0.2 mg/dL (0.2-1.0)
[2017-09-14 22:40] LABS: Bacteria/HPF 1+ HPF (None Seen); Hyaline Casts/LPF 0-3 HYALINE CAST LPF (0-3 Hyaline); RBC/HPF 0-3 HPF (0-3); Squamous Epithelial None Seen HPF (0-3)
[2017-09-14] MEDS ORDERED: cefTRIAXone\\ROCEPHIN 1 GM, Syringe 0.4 ML in Sterile Water 9.6 ML SLOW IVP SCH (22:45)
[2017-09-14 22:53] LABS: ALT (SGPT) 13 U/L (8-55); AST (SGOT) 14 U/L (5-34); Alkaline Phosphatase 138 U/L (40-150); Anion Gap 21 mmol/L (10-20); BUN (Urea Nitrogen) 67 mg/dL (9.8-20.1); Bilirubin, Total 0.4 mg/dL (0.2-1.2); Calc. Creatinine Clearance 0 mL/min (70-130); Calcium 10.1 mg/dL (7.8-10.44); Carbon Dioxide 19 mmol/L (22-29); Chloride 92 mmol/L (98-107); Estimated GFR-MDRD 17; Globulin 3.7 g/dL (2.4-3.5); Protein, Total 7.6 g/dL (6.0-8.3)
[2017-09-14] MEDS ORDERED: Morphine 10 MG/ML VIAL ONE (23:31)
[2017-09-15] MEDS ORDERED: Sodium Bicarb 50 MEQ/50 ML Abboject 8.4% SYRINGE ONE ×2 (00:11→00:13)
[2017-09-15] MEDS ORDERED: Ondansetron HCl/PF 4 MG/2 ML Vial IVP PRN ×2 (01:30→07:57)
[2017-09-15] MEDS ORDERED: Sodium Chloride 0.9% 1,000 ML IV SCH (01:30)
[2017-09-15] MEDS ORDERED: Ondansetron ODT 4 MG TAB SL PRN (01:30)
[2017-09-15] MEDS ORDERED: Acetaminophen 325 MG TAB PO PRN (01:30)
[2017-09-15 01:41] VITALS: BMI 29.8
[2017-09-15 02:08] LABS: Anion Gap 18 mmol/L (10-20); BUN (Urea Nitrogen) 63 mg/dL (9.8-20.1); Calc. Creatinine Clearance 30 mL/min (70-130); Calcium 9.3 mg/dL (7.8-10.44); Carbon Dioxide 25 mmol/L (22-29); Chloride 94 mmol/L (98-107); Estimated GFR-MDRD 20
[2017-09-15] MEDS ORDERED: Polyethylene Glycol 3350 17 GM Packet PO PRN (04:24)
[2017-09-15] MEDS ORDERED: HYDROcodone/Acetaminophen 10/325 mg Tablet PO SCH (04:30)
[2017-09-15 06:08] LABS: Anion Gap 16 mmol/L (10-20); BUN (Urea Nitrogen) 59 mg/dL (9.8-20.1); Calc. Creatinine Clearance 33 mL/min (70-130); Calcium 9.2 mg/dL (7.8-10.44); Carbon Dioxide 24 mmol/L (22-29); Chloride 98 mmol/L (98-107); Estimated GFR-MDRD 22
[2017-09-15] MEDS ORDERED: Ondansetron ODT 4 MG TAB PO PRN (07:57)
[2017-09-15] MEDS ORDERED: Bisacodyl 5 MG TAB PO PRN (07:57)
[2017-09-15 08:22] LABS: Phosphorus 5.7 mg/dL (2.3-4.7)
[2017-09-15] MEDS: Famotidine 20 MG TAB PO SCH (08:40)
[2017-09-15] MEDS: Sodium Chloride 0.9% 1,000 ML IV SCH ×3 (08:41→23:47)
[2017-09-15] MEDS: Docusate 100 MG CAP PO SCH ×2 (08:41→20:36)
[2017-09-15] MEDS: HYDROcodone/Acetaminophen 10/325 mg Tablet PO PRN ×3 (08:41→20:37)
[2017-09-15] MEDS: Acetaminophen 325 MG TAB PO PRN (12:10)
[2017-09-15 12:29] LABS: Anion Gap 19 mmol/L (10-20); BUN (Urea Nitrogen) 52 mg/dL (9.8-20.1); Calc. Creatinine Clearance 38 mL/min (70-130); Calcium 9.3 mg/dL (7.8-10.44); Carbon Dioxide 22 mmol/L (22-29); Chloride 100 mmol/L (98-107); Estimated GFR-MDRD 26
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
--- NOTE | 2017-09-15 16:40 | PRG ---
DATE OF SERVICE: 09/15/2017 SUBJECTIVE: Patient was seen and examined at bedside and overnight events noted. Patient denies an y shortness of breath or chest pain or palpitation. No history of nausea or vomiting or diarrhea or fever or chills or cramps. OBJECTIVE: GENERAL: This is a well-built female in no apparent distress. VITAL SIGNS: Temperature 99.1, pulse 110, respiratory rate 18, blood pressure 139/81. HEENT: Atraumatic, normocephalic. Oral mucosa is moist. NECK: Supple. CARDIOVASCULAR: S1 and S2 heard, rate and rhythm regular. RESPIRATORY: Clear to auscultation. GASTROINTESTINAL: Abdomen is soft. MUSCULOSKELETAL: No tenderness, no edema. DERMATOLOGIC: No skin rash. NEUROLOGIC: Alert and awake and oriented X3. No focal neurologic deficits. Moving all the extremi ties. PSYCHIATRIC: Mood and affect normal. LABORATORY DATA: Potassium is 5.8, BUN is 52, and creatinine is 2.2. ASSESSMENT AND PLAN: 1. Acute kidney injury on chronic kidney disease. Renal function is getting better. Agree with cu rrent management, continue current management. Hold Lasix and intravenous fluids for now. Continue oral hydration. 2. Hyperkalemia, much better after holding the spironolactone and potassium supplements. 3. Hyponatremia, mild, getting better. 4. Azotemia. 5. Hypoalbuminemia. 6. Hypertension, stable. 7. Monitor blood pressure. Continue current management and will follow. Avoid nephrotoxins.
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
[2017-09-16] MEDS: HYDROcodone/Acetaminophen 10/325 mg Tablet PO PRN ×5 (04:05→22:40)
[2017-09-16 05:18] LABS: #Basophils 0.1 thou/uL (0.0-0.2); #Lymphocytes 2.5 thou/uL (1.20-3.40); #Monocytes 1.2 thou/uL (0.11-0.59); #Neutrophils 5.8 thou/uL (1.40-6.50); %Basophils 0.7 % (0.0-1.0); %Eosinophils 0.1 % (0.0-10.0); %Lymphocytes 25.9 % (21.0-51.0); %Monocytes 12.2 % (0.0-10.0); Hematocrit 30.3 % (36.0-47.0); Mean Platelet Volume 6.5 fL (7.4-10.4); Red Blood Cell (RBC) Count 2.94 mill/uL (4.20-5.40); White Blood Cell (WBC) Count 9.5 thou/uL (4.8-10.8)
[2017-09-16 05:28] LABS: Anion Gap 14 mmol/L (10-20); BUN (Urea Nitrogen) 33 mg/dL (9.8-20.1); Calc. Creatinine Clearance 55 mL/min (70-130); Calcium 9.3 mg/dL (7.8-10.44); Carbon Dioxide 22 mmol/L (22-29); Chloride 104 mmol/L (98-107); Estimated GFR-MDRD 40
[2017-09-16] MEDS: Famotidine 20 MG TAB PO SCH (09:18)
[2017-09-16] MEDS ORDERED: cefTRIAXone\\ROCEPHIN 1 GM in Sodium Chloride 0.9% 100 ML IVPB SCH (10:15)
[2017-09-16] MEDS: Docusate 100 MG CAP PO SCH ×2 (10:56→21:03)
[2017-09-16] MEDS ORDERED: cefTRIAXone\\ROCEPHIN 1 GM, Syringe 0.4 ML in Sterile Water 9.6 ML SLOW IVP SCH (11:00)
[2017-09-16] MEDS: Acetaminophen 325 MG TAB PO PRN (11:31)
--- NOTE | 2017-09-16 12:46 | PDOC.PN ---
- Subjective Encounter Start Date: 09/16/17 Encounter Start Time: 12:44 Patient seen and examined. No new complaints. No overnight events - Objective Resuscitation Status: Resuscitation Status FULL:Full Resuscitation MAR Reviewed: Yes Vital Signs & Weight: Vital Signs (12 hours) Temp Pulse Pulse Pulse Resp BP BP 09/16/17 11:22 98.2 F 107 H 16 09/16/17 10:04 94 112 H 105/55 L 119/57 L 09/16/17 07:50 99.0 F 92 14 09/16/17 04:00 98.3 F 84 16 BP Pulse Ox Pulse Ox 09/16/17 11:22 119/57 L 09/16/17 10:04 96 09/16/17 07:50 102/51 L 09/16/17 04:00 122/58 L 96 Weight Weight 164 lb 12.8 oz I&O: 09/15/17 09/16/17 09/17/17 06:59 06:59 06:59 Intake Total 616 3614 Output Total 550 200 Balance 66 3414 Result Diagrams: 09/16/17 04:17 09/16/17 04:17 Phys Exam - Physical Examination Constitutional: NAD HEENT: PERRLA Neck: no JVD Respiratory: no wheezing Cardiovascular: no significant murmur Gastrointestinal: non-tender Musculoskeletal: edema present Neurological: moves all 4 limbs Psychiatric: A&O x 3 Dx/Plan (1) UTI (urinary tract infection) Status: Acute (2) Renal failure (ARF), acute on chronic Code(s): N17.9 - ACUTE KIDNEY FAILURE, UNSPECIFIED; N18.9 - CHRONIC KIDNEY DISEASE, UNSPECIFIED Status: Acute (3) Hyperkalemia Code(s): E87.5 - HYPERKALEMIA Status: Resolved (4) Compression fracture of first lumbar vertebra Code(s): S32.010A - WEDGE COMPRESSION FRACTURE OF FIRST LUMBAR VERTEBRA, INIT Status: Acute (5) HTN (hypertension) Code(s): I10 - ESSENTIAL (PRIMARY) HYPERTENSION Status: Chronic (6) History of CVA (cerebrovascular accident) Code(s): Z86.73 - PRSNL HX OF TIA (TIA), AND CEREB INFRC W/O RESID DEFICITS Status: Chronic - Plan * start rocephin for uti due to ecoli * f/u renal plan * ef- 55%
[2017-09-16 14:14] LABS: Magnesium 1.7 mg/dL (1.6-2.6)
--- NOTE | 2017-09-16 20:49 | PRG ---
DATE OF SERVICE: 09/16/2017 SUBJECTIVE: Patient was seen and examined at bedside and overnight events noted. Patient denies any shortness of breath or chest pain or palpitation. No history of nausea or vomiting or diarrhea or fever or chills or cramps. OBJECTIVE: GENERAL: This is a well-built white female in no apparent distress. VITAL SIGNS: Temperature 98, pulse 107, respiratory rate 18, blood pressure 119 /67. HEENT: Atraumatic, normocephalic. Oral mucosa is moist. NECK: Supple CARDIOVASCULAR: S1, S2 heard. Rate and rhythm regular. RESPIRATORY: Clear to auscultation GASTROINTESTINAL: Abdomen is soft MUSCULOSKELETAL: No tenderness. No edema. DERMATOLOGIC: No skin rash. NEUROLOGIC: Alert and awake and oriented X3. No focal neurologic deficits. Moving all the extremities. PSYCHIATRIC: Mood and affect normal. LABORATORY DATA: Potassium is 4.5, creatinine is 1.3. ASSESSMENT AND PLAN: 1. Acute kidney injury. Renal function is much better. 2. Hyperkalemia. Limit potassium. 3. HTN - stable. 4. Edema - controlled. 5. Anemia - monitor Hb level. Overall, renal function and potassium are better. Limit potassium in the diet. MTDD
[2017-09-16] MEDS: clonazePAM 1 MG TAB PO SCH (21:03)
[2017-09-17 05:34] LABS: #Lymphocytes 2.1 thou/uL (1.20-3.40); #Neutrophils 6.8 thou/uL (1.40-6.50); %Basophils 0.4 % (0.0-1.0); %Eosinophils 0.1 % (0.0-10.0); %Lymphocytes 21.3 % (21.0-51.0); %Monocytes 9.6 % (0.0-10.0); Hematocrit 29.7 % (36.0-47.0); Mean Platelet Volume 6.3 fL (7.4-10.4); Red Blood Cell (RBC) Count 2.92 mill/uL (4.20-5.40); White Blood Cell (WBC) Count 9.9 thou/uL (4.8-10.8)
[2017-09-17 05:44] LABS: Anion Gap 14 mmol/L (10-20); BUN (Urea Nitrogen) 18 mg/dL (9.8-20.1); Calc. Creatinine Clearance 71 mL/min (70-130); Calcium 9.3 mg/dL (7.8-10.44); Carbon Dioxide 21 mmol/L (22-29); Chloride 103 mmol/L (98-107); Estimated GFR-MDRD 54
[2017-09-17] MEDS: HYDROcodone/Acetaminophen 10/325 mg Tablet PO PRN ×2 (05:44→09:42)
--- NOTE | 2017-09-17 09:15 | PRG ---
DATE OF SERVICE: 09/17/2017 SUBJECTIVE: Patient was seen and examined at bedside and overnight events noted. Patient denies an y shortness of breath or chest pain or palpitation. No history of nausea or vomiting or diarrhea or fever or chills or cramps. OBJECTIVE: GENERAL: This is a well-built white female in no apparent distress. VITAL SIGNS: Temperature 98.1, pulse 82, respiratory rate 18, blood pressure 123/53. HEENT: Atraumatic, normocephalic. Oral mucosa is moist. NECK: Supple. CARDIOVASCULAR: S1 and S2 heard, rate and rhythm regular. RESPIRATORY: Clear to auscultation. GASTROINTESTINAL: Abdomen is soft. MUSCULOSKELETAL: No tenderness, no edema. DERMATOLOGIC: No skin rash. NEUROLOGIC: Alert and awake and oriented X3. No focal neurologic deficits. Moving all the extremi ties. PSYCHIATRIC: Mood and affect normal. LABORATORY DATA: Potassium is 3.9 and creatinine is 1.06. ASSESSMENT AND PLAN: 1. Acute kidney injury, much better and likely stable. 2. Hyperkalemia, much better. 3. Edema, controlled. 4. Cardiorenal syndrome. 5. Hypertension, stable. Okay to discharge home. Follow up in clinic in 1 week.
[2017-09-17] MEDS: Famotidine 20 MG TAB PO SCH (09:42)
[2017-09-17] MEDS: clonazePAM 1 MG TAB PO SCH (09:42)
[2017-09-17] MEDS: Docusate 100 MG CAP PO SCH (09:42)
--- NOTE | 2017-09-17 11:32 | PDOC.PN ---
- Subjective Encounter Start Date: 09/17/17 Encounter Start Time: 11:30 Patient seen and examined. No new complaints. No overnight events - Objective Resuscitation Status: Resuscitation Status FULL:Full Resuscitation MAR Reviewed: Yes Vital Signs & Weight: Vital Signs (12 hours) Temp Pulse Resp BP Pulse Ox 09/17/17 08:00 97.9 F 92 16 105/69 98 09/17/17 04:00 99.1 F 89 18 122/59 L 95 Weight Weight 166 lb 9.6 oz I&O: 09/16/17 09/17/17 09/18/17 06:59 06:59 06:59 Intake Total 3614 1260 Output Total 200 1500 Balance 3414 -240 Result Diagrams: 09/17/17 04:30 09/17/17 04:30 Phys Exam - Physical Examination Constitutional: NAD HEENT: PERRLA Neck: no JVD Respiratory: no wheezing Cardiovascular: no significant murmur Gastrointestinal: non-tender Musculoskeletal: pulses present Neurological: moves all 4 limbs Psychiatric: A&O x 3 Dx/Plan (1) UTI (urinary tract infection) Status: Acute (2) Renal failure (ARF), acute on chronic Code(s): N17.9 - ACUTE KIDNEY FAILURE, UNSPECIFIED; N18.9 - CHRONIC KIDNEY DISEASE, UNSPECIFIED Status: Acute (3) Hyperkalemia Code(s): E87.5 - HYPERKALEMIA Status: Resolved (4) Compression fracture of first lumbar vertebra Code(s): S32.010A - WEDGE COMPRESSION FRACTURE OF FIRST LUMBAR VERTEBRA, INIT Status: Acute (5) HTN (hypertension) Code(s): I10 - ESSENTIAL (PRIMARY) HYPERTENSION Status: Chronic (6) History of CVA (cerebrovascular accident) Code(s): Z86.73 - PRSNL HX OF TIA (TIA), AND CEREB INFRC W/O RESID DEFICITS Status: Chronic - Plan * doing well * kidney function improved * change abx to omnicef * d/c home
[2017-09-17 12:40] VITALS: BP 134/78; TEMP 98.7
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
[2017-09-17] MEDS ORDERED: Cefdinir 300 MG CAP PO SCH (21:00)
--- NOTE | 2017-09-25 16:08 | EKG ---
Test Reason : Blood Pressure : / mmHG Vent. Rate : 096 BPM Atrial Rate : 096 BPM P-R Int : 136 ms QRS Dur : 072 ms QT Int : 324 ms P-R-T Axes : 030 056 065 degrees QTc Int : 409 ms Normal sinus rhythm Slightly peaked T waves Improved c/w prior Normal ECG Confirmed by MITA VILLARREAL DO ([id number]), fashion editor JOCELYN REYES ([id number]) on 09/25/2017 4:08:07 PM Referred By: Confirmed By:MITA VILLARREAL DO
== END 2017-09-17 13:48 | disposition home health service (06) | DRG 683 ==
LOC: ERS 21:26 → 2NO 23:50
PROVIDERS: ADMIT Internal Medicine; ATTEND Internal Medicine
DX: N17.9 Acute kidney failure, unspecified (principal); S32.010A Wedge compression fracture of first lumbar vertebra, initial encounter for closed fracture; I50.32 Chronic diastolic (congestive) heart failure; I13.0 Hypertensive heart and chronic kidney disease with heart failure and stage 1 through stage 4 chronic kidney disease, or unspecified chronic kidney disease; Z99.81 Dependence on supplemental oxygen; E87.1 Hypo-osmolality and hyponatremia; N39.0 Urinary tract infection, site not specified; E87.5 Hyperkalemia; E88.09 Other disorders of plasma-protein metabolism, not elsewhere classified; N18.3 Chronic kidney disease, stage 3 (moderate); E83.39 Other disorders of phosphorus metabolism; I65.29 Occlusion and stenosis of unspecified carotid artery; G89.29 Other chronic pain; M54.9 Dorsalgia, unspecified; Z86.73 Personal history of transient ischemic attack (TIA), and cerebral infarction without residual deficits; F31.9 Bipolar disorder, unspecified; J44.9 Chronic obstructive pulmonary disease, unspecified; Z88.1 Allergy status to other antibiotic agents; Z88.5 Allergy status to narcotic agent; Z88.0 Allergy status to penicillin; Z87.891 Personal history of nicotine dependence; B96.20 Unspecified Escherichia coli [E. coli] as the cause of diseases classified elsewhere; D64.9 Anemia, unspecified; E78.5 Hyperlipidemia, unspecified
CPT/HCPCS: 36415; 80048; 81003; 81015; 83735; 84100; 85025; 87040; 87077; 87086; 87186; 93005; 96361; 96374; 96375; A4216; G8978-GP-CI; G8979-GP-CI; G8980-GP-CI; G8987-GO-CI; G8988-GO-CI; G8989-GO-CI; J0696; J2270

== ENCOUNTER 2018-02-02 12:16 | Inpatient (IN) | payer MEDICARE ==
[2018-02-02 12:48] LABS: #Lymphocytes 1.3 thou/uL (1.20-3.40); #Monocytes 0.8 thou/uL (0.11-0.59); #Neutrophils 12.9 thou/uL (1.40-6.50); %Basophils 0.3 % (0.0-1.0); %Eosinophils 0.1 % (0.0-10.0); %Lymphocytes 8.9 % (21.0-51.0); %Monocytes 5.2 % (0.0-10.0); %Neutrophils 85.6 % (42.0-75.0); Hemoglobin 13.9 g/dL (12.0-16.0); Mean Corpuscular HGB CONC 33.5 g/dL (32.0-36.0); Mean Corpuscular Hemoglobin 30.7 pg (27.0-31.0); Mean Corpuscular Volume 91.8 fl (81.0-99.0); Mean Platelet Volume 5.8 fL (7.4-10.4); Platelet Count 452 thou/uL (130-400); RBC Distribution Width 16.2 % (11.5-14.5); Red Blood Cell (RBC) Count 4.52 mill/uL (4.20-5.40); White Blood Cell (WBC) Count 15.1 thou/uL (4.8-10.8)
[2018-02-02 13:07] LABS: ALT (SGPT) 24 U/L (8-55); AST (SGOT) 36 U/L (5-34); Albumin 4.6 g/dL (3.5-5.0); Alkaline Phosphatase 174 U/L (40-150); Anion Gap 18 mmol/L (10-20); BUN (Urea Nitrogen) 22 mg/dL (9.8-20.1); Bilirubin, Total 0.4 mg/dL (0.2-1.2); Calc. Creatinine Clearance 0 mL/min (70-130); Calcium 10.3 mg/dL (7.8-10.44); Carbon Dioxide 20 mmol/L (22-29); Chloride 77 mmol/L (98-107); Estimated GFR-MDRD 40; Globulin 3.5 g/dL (2.4-3.5); Glucose 104 mg/dL (70-105); Potassium 5.1 mmol/L (3.5-5.1); Protein, Total 8.1 g/dL (6.0-8.3)
[2018-02-02 13:12] LABS: Sodium 110 mmol/L (136-145); Troponin I Less than 0.010 ng/mL (< 0.028)
[2018-02-02 13:18] LABS: CKMB 21.7 ng/mL (0-6.6)
[2018-02-02] MEDS ORDERED: Hydrocortisone Sod Succ/PF 100 mg/2 ml Vial ONE (13:39)
[2018-02-02] MEDS ORDERED: Acetaminophen 500 MG TAB ONE (14:54)
[2018-02-02 15:01] LABS: Bilirubin Negative (Negative); Blood, Urine Negative (Negative); Clarity CLEAR (Clear); Glucose, Urine (Dipstick) Negative (Negative); Leukocyte Negative (Negative); Nitrite Negative (Negative); Protein, Urine (Dipstick) Negative (Neg-Trace); Urobilinogen 0.2 mg/dL (0.2-1.0)
[2018-02-02 15:30] VITALS: BMI 29.5
[2018-02-02] MEDS ORDERED: hydrALAZINE 20 MG/ML VIAL SLOW IVP PRN (17:35)
[2018-02-02] MEDS ORDERED: Ondansetron ODT 4 MG TAB PO PRN (17:35)
[2018-02-02] MEDS ORDERED: Ondansetron HCl/PF 4 MG/2 ML Vial IVP PRN (17:35)
[2018-02-02] MEDS ORDERED: cloNIDine 0.1 MG TAB PO PRN (17:35)
[2018-02-02] MEDS ORDERED: Acetaminophen With Codeine [Tylenol With Codeine #4] PO PRN (18:15)
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
[2018-02-02] MEDS: Gabapentin 300 MG CAP PO SCH (20:49)
[2018-02-02] MEDS: clonazePAM 0.5 MG TAB PO SCH (20:50)
[2018-02-02] MEDS: Acetaminophen/Codeine 30-300mg Tablet PO PRN (20:50)
[2018-02-02] MEDS: Famotidine 20 MG TAB PO SCH (20:51)
[2018-02-02] MEDS: OLANZapine 5 MG TAB PO SCH (20:51)
[2018-02-02] MEDS: Cyclobenzaprine 10 MG TAB PO SCH (20:51)
[2018-02-02] MEDS ORDERED: traZODone HCl 50 MG TAB PO SCH (22:15)
[2018-02-02] MEDS: Albuterol Sulfate 2.5 mg/3 ml Neb NEB PRN (22:29)
[2018-02-03] MEDS: Acetaminophen/Codeine 30-300mg Tablet PO PRN ×3 (03:51→17:59)
[2018-02-03 05:36] LABS: Anion Gap 17 mmol/L (10-20); BUN (Urea Nitrogen) 18 mg/dL (9.8-20.1); Calc. Creatinine Clearance 83 mL/min (70-130); Calcium 9.8 mg/dL (7.8-10.44); Carbon Dioxide 20 mmol/L (22-29); Chloride 81 mmol/L (98-107); Estimated GFR-MDRD 69; Glucose 113 mg/dL (70-105); Magnesium 2.2 mg/dL (1.6-2.6); Potassium 4.2 mmol/L (3.5-5.1)
[2018-02-03 05:39] LABS: Sodium 114 mmol/L (136-145)
[2018-02-03 05:53] LABS: Band 5 % (5-11); Hemoglobin 12.8 g/dL (12.0-16.0); Hypochromia SLIGHT = 6-15 cells (100X) (0-5/hpf); Lymphocytes 23 % (21-51); MDiff Complete? YES; Mean Corpuscular HGB CONC 31.6 g/dL (32.0-36.0); Mean Corpuscular Hemoglobin 29.4 pg (27.0-31.0); Mean Corpuscular Volume 93.2 fl (81.0-99.0); Mean Platelet Volume 6.3 fL (7.4-10.4); Monocytes 4 % (0-10); Neutrophil 68 % (42-75); PLT Morphology Comment Appears Increased; Platelet Count 431 thou/uL (130-400); RBC Distribution Width 16.3 % (11.5-14.5); Red Blood Cell (RBC) Count 4.34 mill/uL (4.20-5.40); White Blood Cell (WBC) Count 12.3 thou/uL (4.8-10.8)
[2018-02-03] MEDS: Clopidogrel Bisulfate 75 MG TAB PO SCH (08:27)
[2018-02-03] MEDS: Ferrous Sulfate 325 MG TAB PO SCH (08:27)
[2018-02-03] MEDS: Aspirin 81 mg Enteric Coated Tablet PO SCH (08:27)
[2018-02-03] MEDS: clonazePAM 0.5 MG TAB PO SCH ×3 (08:27→21:46)
[2018-02-03] MEDS: Gabapentin 300 MG CAP PO SCH ×3 (08:28→21:46)
[2018-02-03] MEDS: Furosemide 40 MG TAB PO SCH (08:28)
[2018-02-03] MEDS: Famotidine 20 MG TAB PO SCH ×2 (08:28→21:46)
[2018-02-03] MEDS: Cyclobenzaprine 10 MG TAB PO SCH ×2 (08:28→21:46)
[2018-02-03] MEDS: Albuterol Sulfate 2.5 mg/3 ml Neb NEB PRN ×3 (09:51→22:53)
[2018-02-03] MEDS: guaiFENesin ER 600 MG TAB PO PRN (11:51)
[2018-02-03] MEDS ORDERED: Cepastat Lozenges 1 LOZ PO PRN (15:56)
--- NOTE | 2018-02-03 15:56 | PDOC.PN ---
- Subjective Encounter Start Date: 02/03/18 Encounter Start Time: 15:45 Subjective: f/u for severe hyponatremia. Overall improved with fluid restriction. -: Pt denies any specific complaint other than post-nasal drainage. -: Nsg reports pt going outside to smoke repetitively. - Objective Resuscitation Status: Resuscitation Status FULL:Full Resuscitation MAR Reviewed: Yes Vital Signs & Weight: Vital Signs (12 hours) Temp Pulse Resp BP Pulse Ox 02/03/18 15:45 84 16 02/03/18 15:41 98.2 F 106 H 20 102/77 98 02/03/18 14:07 86 97/70 02/03/18 09:51 84 15 02/03/18 07:52 97.8 F 76 17 126/72 98 02/03/18 07:45 97.4 F L 82 17 98 02/03/18 04:02 97.4 F L 82 17 114/79 99 Weight Weight 154 lb 9.6 oz I&O: 02/02/18 02/03/18 02/04/18 06:59 06:59 06:59 Intake Total 440 Balance 440 Result Diagrams: 02/03/18 05:02 02/03/18 05:02 Additional Labs: Laboratory Tests 02/02/18 02/02/18 02/02/18 12:37 12:37 14:51 WBC 15.1 H Plt Count 452 H Neutrophils % 85.6 H Neutrophils % (Manual) Sodium 110 L* Chloride 77 L Creatinine 1.36 H TSH 3rd Generation Urine Osmolality Urine Sodium 33 Urine Potassium 18.0 02/02/18 02/03/18 02/03/18 14:51 05:02 05:02 WBC Plt Count Neutrophils % Neutrophils % (Manual) 68 Sodium Chloride Creatinine TSH 3rd Generation 0.1501 L Urine Osmolality 178 L Urine Sodium Urine Potassium EKG Reviewed by me: Yes (Tele - SR in 70's) Phys Exam - Physical Examination Constitutional: NAD HEENT: PERRLA, oral pharynx no lesions Neck: no JVD, supple scattered rhonchi Cardiovascular: RRR Gastrointestinal: soft, non-tender, no distention, positive bowel sounds Musculoskeletal: no edema, pulses present Neurological: normal sensation, moves all 4 limbs Psychiatric: A&O x 3 Skin: normal turgor, cap refill <2 seconds Dx/Plan (1) Acute hyponatremia Code(s): E87.1 - HYPO-OSMOLALITY AND HYPONATREMIA Status: Acute Comment: Improved with fluid restriction, continue 1.2L/24h restriction, serial Na+ monitoring, avoid Spironolactone (2) Chronic hyponatremia Code(s): E87.1 - HYPO-OSMOLALITY AND HYPONATREMIA Status: Chronic Comment: Baseline appears around low-120's, see #1 (3) CARY (acute kidney injury) Code(s): N17.9 - ACUTE KIDNEY FAILURE, UNSPECIFIED Status: Acute Comment: Resolving, avoid nephrotoxic meds and limit contrast exposure (4) Tobacco abuse Code(s): Z72.0 - TOBACCO USE Status: Chronic Comment: Smoking cessation offered but pt not ready to quit (5) Addisons disease Code(s): E27.1 - PRIMARY ADRENOCORTICAL INSUFFICIENCY Status: Chronic Comment: Continue Dexamethasone, monitor clinically (6) CKD (chronic kidney disease), stage III Code(s): N18.3 - CHRONIC KIDNEY DISEASE, STAGE 3 (MODERATE) Status: Chronic Comment: Baseline currently - Plan out of bed/ambulate, DVT proph w/SCDs Stable overall -: Continue Fluid restriction 1.2L/24h -: Hold off Spironolactone -: Appreciate Nephrology assistance -: Continue Dexamethasone 0.5mg daily * AM lab: BMP, CBC, Free T4 * Likely home in 24h * Transfer to medical floor
[2018-02-03] MEDS: Acetaminophen 500 MG TAB PO PRN (16:06)
[2018-02-03] MEDS ORDERED: traZODone HCl 50 MG TAB PO SCH (21:00)
[2018-02-03] MEDS: OLANZapine 5 MG TAB PO SCH (21:46)
[2018-02-04] MEDS: Acetaminophen/Codeine 30-300mg Tablet PO PRN ×2 (00:12→06:24)
[2018-02-04 04:36] LABS: Anion Gap 14 mmol/L (10-20); BUN (Urea Nitrogen) 25 mg/dL (9.8-20.1); Calc. Creatinine Clearance 66 mL/min (70-130); Calcium 9.3 mg/dL (7.8-10.44); Carbon Dioxide 22 mmol/L (22-29); Chloride 86 mmol/L (98-107); Estimated GFR-MDRD 54; Glucose 134 mg/dL (70-105); Potassium 4.3 mmol/L (3.5-5.1)
[2018-02-04 04:43] LABS: Band 2 % (5-11); Hemoglobin 11.6 g/dL (12.0-16.0); Lymphocytes 17 % (21-51); MDiff Complete? YES; Mean Corpuscular HGB CONC 31.7 g/dL (32.0-36.0); Mean Corpuscular Hemoglobin 29.4 pg (27.0-31.0); Mean Corpuscular Volume 92.7 fl (81.0-99.0); Mean Platelet Volume 6.2 fL (7.4-10.4); Monocytes 7 % (0-10); Neutrophil 74 % (42-75); PLT Morphology Comment Appears Increased; Platelet Count 401 thou/uL (130-400); RBC Distribution Width 15.9 % (11.5-14.5); Red Blood Cell (RBC) Count 3.97 mill/uL (4.20-5.40); White Blood Cell (WBC) Count 10.7 thou/uL (4.8-10.8)
[2018-02-04 04:55] LABS: Sodium 118 mmol/L (136-145)
[2018-02-04 08:20] VITALS: BP 94/77; TEMP 98
[2018-02-04] MEDS: Albuterol Sulfate 2.5 mg/3 ml Neb NEB PRN (09:00)
[2018-02-04] MEDS: Furosemide 40 MG TAB PO SCH (09:17)
[2018-02-04] MEDS: Aspirin 81 mg Enteric Coated Tablet PO SCH (09:17)
[2018-02-04] MEDS: Famotidine 20 MG TAB PO SCH (09:17)
[2018-02-04] MEDS: Cyclobenzaprine 10 MG TAB PO SCH (09:18)
[2018-02-04] MEDS: clonazePAM 0.5 MG TAB PO SCH (09:18)
[2018-02-04] MEDS: Gabapentin 300 MG CAP PO SCH (09:18)
[2018-02-04] MEDS: Clopidogrel Bisulfate 75 MG TAB PO SCH (09:19)
[2018-02-04] MEDS: Ferrous Sulfate 325 MG TAB PO SCH (09:19)
[2018-02-04] MEDS: guaiFENesin ER 600 MG TAB PO PRN (09:42)
[2018-02-04] MEDS: Acetaminophen 500 MG TAB PO PRN (09:42)
--- NOTE | 2018-02-04 10:29 | DIS ---
DATE OF ADMISSION: 02/02/2018 DATE OF DISCHARGE: 02/04/2018 DISCHARGE DIAGNOSES: 1. Acute hyponatremia, improved. 2. Chronic hyponatremia. 3. Acute kidney injury, resolved. 4. Tobacco abuse. 5. Goshen's disease, stable. 6. Chronic kidney disease stage 3. CONSULTATIONS: Dr. Franco with Nephrology Service. PERTINENT LABORATORY DATA AND X-RAY FINDINGS: Sodium ranged between 110-118, creatinine ranged betwe en 0.85-1.36 with estimated GFR ranging between 40-69. TSH 0.15 with free T4 of 1.05. CBC showed wh ite blood cell count ranging between 10.7-15.1, hemoglobin ranged between 11.6-13.9, platelet count r anged between 401-452. HOSPITAL COURSE: The patient was initially admitted after presenting with profound hyponatremia in t he context of chronic hyponatremia with initial value of 110. The patient was placed on a 1.2 liter per 24 hour fluid restriction with serial monitoring of the sodium showing overall improving values d uring the hospital course. The patient's presentation likely multifactorial including components of ongoing use of spironolactone as well as increased free water intake prior to admission. No specific changes to current management recommended by Nephrology with the agreement for ongoing fluid restric tion and serial monitoring of sodium values. The patient was continued on her regular outpatient med ication regimen with the exception of spironolactone and overall remained clinically stable during e hospital course. The patient was ambulating without assistance or difficulty, tolerating regular o ral intake, and made multiple trips to smoke outside the hospital during the hospital course. Overal l, patient remained clinically stable for the hospital stay. On the day of discharge, I have examine d the patient on 02/04/2018 with the patient ready for discharge. DISCHARGE MEDICATIONS: 1. Tylenol #4 300 mg/60 mg 1 tablet p.o. q.6 hours p.r.n. pain. 2. Enteric-coated aspirin 81 mg 1 tab p.o. daily. 3. Lipitor 10 mg p.o. at bedtime. 4. Clonazepam 1 mg p.o. t.i.d. p.r.n. 5. Plavix 75 mg 1 tab p.o. daily. 6. Clotrimazole/betamethasone 30 mL applied to affected area daily. 7. Flexeril 10 mg p.o. b.i.d. 8. Dexamethasone 0.5 mg p.o. daily. 9. Ferrous sulfate 325 mg p.o. daily. 10. Lasix 40 mg p.o. daily. 11. Gabapentin 600 mg p.o. t.i.d. 12. Zyprexa 10 mg p.o. at bedtime. 13. Crestor 10 mg p.o. daily. FOLLOWUP: Patient will follow up with Dr. Thaddeus Ca within 3 days of discharge. SPECIAL INSTRUCTIONS: Patient will be set up with home health through [facility]. BNP for sodium evaluation on 02/05/2018 and 02/06/2018 recommended with results faxed to Dr. Weldon. CONDITION ON DISCHARGE: Stable. ACTIVITY: Ad abdi. DIET: Heart healthy. Fluid restriction to 1.2 liters per 24 hours x48 hours, then 1.8 liters per 24 hours thereafter. CODE STATUS: FULL. DISPOSITION: Home with [facility] 02/04/2018. Total time preparing and coordinating discharge is 31 minutes.
--- NOTE | 2018-02-04 11:36 | CON ---
DATE OF CONSULTATION: 02/03/2018 CONSULTING PHYSICIAN: Dr. Garcia. REASON FOR CONSULT: Hyponatremia. REASON FOR ADMISSION: Abnormal labs. HISTORY OF PRESENT ILLNESS: A 57-year-old female with history of hyponatremia, bipolar disorder, car otid artery stenosis, came to the hospital with low sodium and sodium wa currently 110 and she was pu t on peritoneal fluid restriction and her sodium is 114. The patient denies any symptoms. No nausea or vomiting. In fact, she wants to go home. No nausea or vomiting. No chest pain reported. She w as sent to the hospital for abdominal mass. PAST MEDICAL HISTORY: Possible chronic hyponatremia, CVA, bipolar disorder, carotid artery stenosis, CHF. PAST SURGICAL HISTORY: Hysterectomy, tubal ligation, left carotid endarterectomy, bilateral foot palmira tracy. HOME MEDICATIONS: Tylenol No. 4, aspirin, Lipitor, Klonopin, Plavix, Flexeril, dexamethasone, ferrou s sulfate, Lasix, Gabapentin, Zyprexa, Crestor, and Aldactone. ALLERGIES: AMOXICILLIN, MEPERIDINE, AUGMENTIN, AND TIZANIDINE. FAMILY HISTORY: Positive for hypertension. SOCIAL HISTORY: No smoking, former smoker. No alcohol or illicit drug abuse. REVIEW OF SYSTEMS: The following complete review of systems was negative, unless otherwise mentioned in the HPI or below: Constitutional: Weight loss or gain, ability to conduct usual activities. Skin: Rash, itching. Eyes: Double vision, pain. ENT/Mouth: Nose bleeding, neck stiffness, pain, tenderness. Cardiovascular: Palpitations, dyspnea on exertion, orthopnea. Respiratory: Shortness of breath, wheezing, cough, hemoptysis, fever or night sweats. Gastrointestinal: Poor appetite, abdominal pain, heartburn, nausea, vomiting, constipation, or diarrhea. Genitourinary: Urgency, frequency, dysuria, nocturia. Musculoskeletal: Pain, swelling. Neurologic/Psychiatric: Anxiety, depression. Allergy/Immunologic: Skin rash, bleeding tendency. PHYSICAL EXAMINATION: GENERAL: This is a well-built female, in no apparent distress. VITAL SIGNS: Temperature 98.2, pulse 103, respiratory 22, blood pressure 102/77. HEENT: Atraumatic, normocephalic. Oral mucosa is moist. NECK: Supple, no masses. CARDIOVASCULAR: S1, S2 heard. Rate and rhythm regular. RESPIRATORY: Clear. ABDOMEN: Soft. MUSCULOSKELETAL: 1+ edema. DERMATOLOGIC: No skin rash. NEUROLOGIC: Alert, awake. PSYCHIATRIC: Mood and affect normal. LABORATORY: Sodium 114, potassium is 4.2, BUN 18, creatinine 0.8. ASSESSMENT AND PLAN: 1. Acute kidney injury. Creatinine is getting better. 2. Hyponatremia, most likely syndrome of inappropriate antidiuretic hormone secretion versus medicat ion. Agree with holding the spironolactone and fluid restriction for now. We will monitor urine pamela dies and is not reliable given the recent use of diuretics. 3. Hypochloremia. 4. Acidosis, mild. 5. Edema, controlled. 6. Hypertension. Plan is to monitor sodium closely. Continue on fluid restriction and hold spironolactone. Thank you for the consult.
--- NOTE | 2018-02-04 23:31 | PRG ---
DATE OF SERVICE: 02/04/2018 SUBJECTIVE: Patient was seen and examined at bedside and overnight events noted. Patient denies any shortness of breath or chest pain or palpitation. No history of nausea or vomitin g or diarrhea or fever or chills or cramps. OBJECTIVE: GENERAL: This is a well-built male, in no apparent distress. VITAL SIGNS: Temperature 98.0, pulse 84, respiratory rate , blood pressure 94/77. HEENT: Atraumatic, normocephalic. Oral mucosa is moist NECK: Supple. CARDIOVASCULAR: S1 and S2 heard. Rate and rhythm regular. RESPIRATORY: Clear to auscultation. GASTROINTESTINAL: Abdomen is soft. MUSCULOSKELETAL: No tenderness. No edema. DERMATOLOGIC: No skin rash. NEUROLOGIC: Alert and awake and oriented X3, No focal neurologic deficits. Moving all the extremitie s. PSYCHIATRIC: Mood and affect normal. LABORATORY DATA: Potassium is 4.3, sodium is 118, creatinine is 1.07. ASSESSMENT AND PLAN: 1. Acute kidney injury, stable. 2. Hyponatremia, better. Patient wants to go home today. 3. Hypochloremia. 4. Edema, controlled. 5. Hypertension. 6. Monitor sodium. We will follow.
== END 2018-02-04 10:53 | disposition home health service (06) | DRG 641 ==
LOC: ERS 12:16 → IMCU/EMU 14:10
PROVIDERS: ADMIT Family Medicine; ATTEND Family Medicine
DX: E87.1 Hypo-osmolality and hyponatremia (principal); E87.2 Acidosis; N17.9 Acute kidney failure, unspecified; N18.3 Chronic kidney disease, stage 3 (moderate); I13.0 Hypertensive heart and chronic kidney disease with heart failure and stage 1 through stage 4 chronic kidney disease, or unspecified chronic kidney disease; E27.1 Primary adrenocortical insufficiency; T50.0X5A Adverse effect of mineralocorticoids and their antagonists, initial encounter; F17.210 Nicotine dependence, cigarettes, uncomplicated; F31.9 Bipolar disorder, unspecified; Z86.73 Personal history of transient ischemic attack (TIA), and cerebral infarction without residual deficits; E87.8 Other disorders of electrolyte and fluid balance, not elsewhere classified
CPT/HCPCS: 36415; 80048; 80061; 80076; 81003; 82436; 82553; 83735; 83935; 84133; 84300; 84439; 84443; 84484; 85007; 85025; 85027; 93005; 94640; 96374; J1720; J7611; J8540

== ENCOUNTER 2018-02-10 09:37 | Outpatient (CLI) | payer MEDICARE ==
[2018-02-10] MEDS ORDERED: ISOVUE-370 76%-LOCM 1 ML ONE (13:00)
--- NOTE | 2018-02-10 13:07 | CT ---
CT ANGIOGRAM ABDOMEN AND PELVIS WITH CONTRAST: Date: 02/10/18 HISTORY: Ischemic colitis. COMPARISON: CT angiogram 08/24/17. FINDINGS: CT angiogram abdomen and pelvis performed after the intravenous administration of contrast. 3D render ing provided. The lung bases are clear. No pericardial effusion. Liver is unremarkable. Gallbladder is unremarkable. There is mild prominence of the common bile duct which measures up to 6.0 mm in size. The majority of the thickening and submucosal edema of the sigmoid colon is resolved from the 7 examination. No hydronephrosis. No retroperitoneal lymphadenopathy. No dilated loops of large or small bowel. The appendix is visualized and is normal. Moderate distention of the urinary bladder. 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 There is a burst-type compression fracture at L1 with retropulsion of fragment posteriorly narrowing the spinal canal to approximately 6-7 mm. The height loss of the anterior mid vertebral body appears only minimally worsened. Vessels: There are two left and two right renal arteries. Adequate enhancement of both kidneys. There is marked atherosclerotic plaque about the aorta with some luminal narrowing below the main paul al arteries, approximately 70% of normal lumen. There is bilateral common iliac venous grafts. The superior mesenteric artery and inferior mesenteric artery and celiac trunk are all patent. There is approximately 30-40% narrowing of the superior mesenteric artery trunk due to eccentric plaque. Th e right hepatic artery originates from the superior mesenteric artery. IMPRESSION: 1. No evidence of ischemic colitis. The superior mesenteric artery and inferior mesenteric arteries are patent without hemodynamically significant stenosis. 2. Interval resolution of the submucosal edema and thickening of the colon previously seen. 3. 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 4. Very low grade further height loss to the L1 compression fracture with retropulsion of the fragme nts narrowing the spinal canal to approximately 6-[address] POS: [facility]
== END 2018-02-10 09:38 | disposition home or self-care (01) ==
LOC: CT 09:37
PROVIDERS: ATTEND Internal Medicine
DX: K55.9 Vascular disorder of intestine, unspecified (principal); K56.699 Other intestinal obstruction unspecified as to partial versus complete obstruction; R60.0 Localized edema; S32.591K Other specified fracture of right pubis, subsequent encounter for fracture with nonunion; S32.011D Stable burst fracture of first lumbar vertebra, subsequent encounter for fracture with routine healing; M48.061 Spinal stenosis, lumbar region without neurogenic claudication
CPT/HCPCS: 74174